=== PATIENT | female | born 1980 | race Two or more races ===

== ENCOUNTER 2022-10-05 12:34 | Inpatient (IN) | payer OTHER ==
[~2022-10-05] VITALS: Ht 162.6 cm; Wt 77.1 kg
[2022-10-05] MEDS ORDERED: PRENATAL TABLE1 EAC1 PO (15:44)
[2022-10-05] MEDS ORDERED: WELLBUTRIN SR100 MG (15:46)
[2022-10-05] MEDS ORDERED: MONTELUKAST SODI4 M1 (15:46)
[2022-10-05] MEDS ORDERED: PREVACID15 M1 (15:47)
== END 2022-10-13 14:06 | disposition home or self-care (01) | DRG 788 ==
LOC: LDR 12:34 → O/R 10-08 21:57 → OB/GYN 10-08 22:34
PROVIDERS: ADMIT Obstetrics & Gynecology; ATTEND Obstetrics & Gynecology
PROC: 4A1HXCZ Monitoring of Products of Conception, Cardiac Rate, External Approach (ICD-10-PCS; 2022-10-05)
PROC: BY4FZZZ Ultrasonography of Third Trimester, Single Fetus (ICD-10-PCS; 2022-10-05)
PROC: 10D00Z1 Extraction of Products of Conception, Low, Open Approach (ICD-10-PCS; principal; 2022-10-09)
DX: O42.013 Preterm premature rupture of membranes, onset of labor within 24 hours of rupture, third trimester (principal); O62.0 Primary inadequate contractions; Z37.0 Single live birth; Z20.822 Contact with and (suspected) exposure to COVID-19; Z3A.33 33 weeks gestation of pregnancy